=== PATIENT | male | born 1980 | race Caucasian/White ===

== ENCOUNTER 2024-05-01 17:41 | Emergency (ER) | payer BC ==
[~2024-05-01] VITALS: Ht 170.2 cm; Wt 60.0 kg
[2024-05-01 17:50] VITALS: TEMP 98.5; O2SAT 98
[2024-05-01] MEDS ORDERED: MECL-299 MT (19:42)
[2024-05-01 19:56] VITALS: BP 121/77; PULSE 76; RESP 16
== END 2024-05-01 19:56 | disposition home or self-care (01) ==
LOC: ER 17:41
DX: R42 Dizziness and giddiness (principal); J44.9 Chronic obstructive pulmonary disease, unspecified; I10 Essential (primary) hypertension
CPT/HCPCS: 99284